=== PATIENT | female | born 2000 ===

== ENCOUNTER → 2020-01-08 | Outpatient (CLI) | payer OTHER | END | disposition home or self-care (01) | LOC: PRENATAL 10:30 | PROVIDERS: ATTEND Obstetrics & Gynecology Maternal & Fetal Medicine | DX: O98.512 Other viral diseases complicating pregnancy, second trimester (principal); O36.80X1 Pregnancy with inconclusive fetal viability, fetus 1; Z36.89 Encounter for other specified antenatal screening; Z3A.15 15 weeks gestation of pregnancy ==

== ENCOUNTER → 2020-02-08 | Outpatient (CLI) | payer OTHER | END | disposition home or self-care (01) | LOC: PRENATAL 02-05 08:00 | PROVIDERS: ATTEND Obstetrics & Gynecology Maternal & Fetal Medicine | DX: O35.0XX1 Maternal care for (suspected) central nervous system malformation in fetus, fetus 1 (principal); O35.3XX1 Maternal care for (suspected) damage to fetus from viral disease in mother, fetus 1; O98.512 Other viral diseases complicating pregnancy, second trimester; Z36.89 Encounter for other specified antenatal screening; Z3A.20 20 weeks gestation of pregnancy ==

== ENCOUNTER → 2020-04-17 | Outpatient (CLI) | payer OTHER | END | disposition home or self-care (01) | LOC: PRENATAL 11:00 | PROVIDERS: ATTEND Obstetrics & Gynecology Maternal & Fetal Medicine | DX: O26.843 Uterine size-date discrepancy, third trimester (principal); Z36.89 Encounter for other specified antenatal screening; Z3A.30 30 weeks gestation of pregnancy ==

== ENCOUNTER 2020-06-17 10:00 | Inpatient (IN) | payer OTHER ==
[~2020-06-17] VITALS: Ht 152.4 cm; Wt 3.6 kg
[2020-06-18] MEDS ORDERED: VITAMIN C100 MG PO (11:50)
[2020-06-18] MEDS ORDERED: PRENATAL + DHA1 EAC1 (11:50)
[2020-06-18] MEDS ORDERED: OMEGA-31000 MG PO (11:50)
[2020-06-21] MEDS ORDERED: MOTRIN IB200 MG PO (15:58)
== END 2020-06-21 16:42 | disposition home or self-care (01) | DRG 788 ==
LOC: LDR 06-18 11:16 → SURG-SUITE 06-18 11:16 → OB/GYN 06-20 10:00 → SURG-SUITE 06-21 16:42
PROVIDERS: ADMIT Obstetrics & Gynecology; ATTEND Obstetrics & Gynecology
PROC: 4A1HXFZ Monitoring of Products of Conception, Cardiac Rhythm, External Approach (ICD-10-PCS; 2020-06-18)
PROC: 10D00Z1 Extraction of Products of Conception, Low, Open Approach (ICD-10-PCS; principal; 2020-06-18 12:45)
DX: O64.1XX0 Obstructed labor due to breech presentation, not applicable or unspecified (principal); Z3A.38 38 weeks gestation of pregnancy; Z37.0 Single live birth; Z20.822 Contact with and (suspected) exposure to COVID-19

== ENCOUNTER 2022-08-24 09:13 | Outpatient (CLI) | payer OTHER ==
[~2022-08-24 09:13] MED LIST: MOTRIN IB200 MG PO; OMEGA-31000 MG PO; PRENATAL + DHA1 EAC1; VITAMIN C100 MG PO
[2022-08-30] MEDS ORDERED: ONDANSETRON ODT8 MG PO (04:29)
== END 2022-08-24 10:45 | disposition home or self-care (01) ==
LOC: PRENATAL 09:13
PROVIDERS: ATTEND Obstetrics & Gynecology Maternal & Fetal Medicine
DX: O35.9XX0 Maternal care for (suspected) fetal abnormality and damage, unspecified, not applicable or unspecified (principal); O35.3XX0 Maternal care for (suspected) damage to fetus from viral disease in mother, not applicable or unspecified; O34.219 Maternal care for unspecified type scar from previous cesarean delivery; Z3A.19 19 weeks gestation of pregnancy

== ENCOUNTER → 2022-08-30 | Emergency (ER) | payer OTHER ==
[~2022-08-30] VITALS: Ht 152.4 cm; Wt 57.6 kg
[~2022-08-30] MED LIST changes: +ONDANSETRON ODT8 MG PO
== END | disposition home or self-care (01) ==
LOC: EMR PED 01:17 → ER 01:17
DX: O21.0 Mild hyperemesis gravidarum (principal); Z3A.20 20 weeks gestation of pregnancy

== ENCOUNTER 2022-11-23 09:19 | Outpatient (CLI) | payer OTHER | END 2022-11-23 10:25 | disposition home or self-care (01) | LOC: PRENATAL 09:19 | PROVIDERS: ATTEND Obstetrics & Gynecology Maternal & Fetal Medicine | DX: O26.849 Uterine size-date discrepancy, unspecified trimester (principal); O36.8199 Decreased fetal movements, unspecified trimester, other fetus; Z3A.32 32 weeks gestation of pregnancy ==

== ENCOUNTER 2022-12-18 20:25 | Inpatient (IN) | payer OTHER ==
[~2022-12-18] VITALS: Ht 149.9 cm; Wt 67.1 kg
[2022-12-25] MEDS ORDERED: IBU800 MG PO (07:11)
[2022-12-25] MEDS ORDERED: COLACE100 MG PO (07:12)
== END 2022-12-25 13:42 | disposition home or self-care (01) | DRG 783 ==
LOC: LDR 20:25 → OB/GYN 20:25
PROVIDERS: ADMIT Student in an Organized Health Care Education/Training Program; ATTEND Student in an Organized Health Care Education/Training Program
PROC: 4A1HXCZ Monitoring of Products of Conception, Cardiac Rate, External Approach (ICD-10-PCS; 2022-12-18)
PROC: BY4FZZZ Ultrasonography of Third Trimester, Single Fetus (ICD-10-PCS; 2022-12-21)
PROC: 0UB70ZZ Excision of Bilateral Fallopian Tubes, Open Approach (ICD-10-PCS; 2022-12-22)
PROC: 10D00Z1 Extraction of Products of Conception, Low, Open Approach (ICD-10-PCS; principal; 2022-12-22 16:30)
DX: O41.03X0 Oligohydramnios, third trimester, not applicable or unspecified (principal); O60.14X0 Preterm labor third trimester with preterm delivery third trimester, not applicable or unspecified; O26.893 Other specified pregnancy related conditions, third trimester; O32.1XX0 Maternal care for breech presentation, not applicable or unspecified; O36.8130 Decreased fetal movements, third trimester, not applicable or unspecified; Z3A.36 36 weeks gestation of pregnancy; Z37.0 Single live birth; Z30.2 Encounter for sterilization; Z20.822 Contact with and (suspected) exposure to COVID-19; O34.211 Maternal care for low transverse scar from previous cesarean delivery; K52.89 Other specified noninfective gastroenteritis and colitis